=== PATIENT | female | born 1975 | race Caucasian/White ===

== ENCOUNTER 2023-11-06 20:18 | Emergency (ER) | payer OTHER, MEDICAID, SELFPAY ==
[2023-11-06 20:31] VITALS: BP 131/60; PULSE 94; RESP 18; TEMP 37.2; O2SAT 99
--- NOTE | 2023-11-06 21:18 | PC.NURSE ---
patient appears well other than having a swollen right jaw which she stated was from an impacted wisdom tooth. She is in pain but stated she is allergic to pain meds and antibiotics as well as laundry detergent. 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 She was recently seen by a provider who looked at her blood under a microscope where they found poison in her blood and brook particles which she stated are everywhere and in everything.
--- NOTE | 2023-11-06 21:45 | ED.GENADULT ---
HPI - General Adult General Chief complaint: Dental/Oral Stated complaint: possible dental infection Time Seen by Provider: 11/06/23 21:18 Source: patient Mode of arrival: Ambulatory History of Present Illness HPI narrative: Patient is a 48-year-old female who has known issues with her wisdom teeth. She is here for swelling and discomfort to her right lower jaw. Related Data Home Medications Medication Instructions Recorded Confirmed ENZYMES (DIGESTIVE ENZYMES) ##0 05/15/12 calcium carbonate 300 mg (750 mg) 750 mg PO ##0 05/15/12 chewable tablet (Tums E-X) folic acid 1 mg tablet 1 mg PO QDAY ##0 05/15/12 Previous Rx's Medication Instructions Recorded ondansetron 4 mg disintegrating 4 mg PO Q6H PRN nausea and 11/06/23 tablet vomiting #10 tabs penicillin V potassium 500 mg 500 mg PO QID 7 days #28 tabs 11/06/23 tablet Allergies Allergy/AdvReac Type Severity Reaction Status Date / Time From CIPRO Allergy Unknown WEAKNESS, Uncoded 11/20/17 12:19 TENDONS,INFLAMMATION From TYLENOL Allergy Unknown IBS Uncoded 11/20/17 12:19 IBUPROFEN Allergy Unknown IBS Uncoded 11/20/17 12:19 PERCOCET/VICODIN Allergy Unknown IBS Uncoded 11/20/17 12:19 Review of Systems Constitutional Constitutional: Reports system reviewed and no additional complaints, except as documented ENT Ears, Nose, Mouth, and Throat: Reports system reviewed and no additional complaints, except as documented Integumentary/Breasts Skin/Breast: Reports system reviewed and no additional complaints, except as documented Patient History Social History Smoking Status: Never smoker Smoking Status: Never smoker Substance Use Type: does not use Exam Initial Vital Signs Initial Vital Signs: Vital Signs Temperature 99 F 11/06/23 20:31 Pulse Rate 94 H 11/06/23 20:31 Respiratory Rate 18 11/06/23 20:31 Blood Pressure 131/60 11/06/23 20:31 Pulse Oximetry 99 11/06/23 20:31 Oxygen Delivery Method Room Air 11/06/23 20:31 HENMT Face and sinus: other (Swelling along right mandibular region.) Mouth: oral mucosae normal, lip normal and moist mucous membranes Throat: posterior oropharynx normal Skin General: no rashes or lesions noted Course Orders Ordered: Discontinued Medications Ondansetron HCl (Ondansetron 4 Mg Odt Prepack) 1 bottle MISC DIRECTED ONE Stop: 11/06/23 21:46 Last Admin: 11/06/23 21:54 Dose: 1 bottle Documented By: REE Penicillin V Potassium (Penicillin Vk 250 Mg Tablet) 500 mg PO NOW ONE Stop: 11/06/23 21:46 Last Admin: 11/06/23 21:54 Dose: 500 mg Documented By: REE Vital Signs Vital signs: Vital Signs - 8 hr 11/06/23 20:31 11/06/23 21:58 Temperature 99 F Pulse Rate 94 H 94 H Respiratory Rate 18 14 Blood Pressure 131/60 112/53 L Pulse Oximetry 99 96 Oxygen Delivery Method Room Air Room Air Medical Decision Making MDM Narrative Medical decision making narrative: Patient has a obvious dental infection. There are no skin changes over the area. There is no drainable abscess noted intraorally. Will place the patient on penicillin. First dose given here in the ER. There was no indication for admission to the hospital. No indication for IV antibiotics. No respiratory distress. Patient understands she does need to follow up with a dentist for definitive treatment. Discharge Plan Departure Patient Disposition: Home Clinical Impression: Dental abscess Instructions: Tooth Abscess, DI for Dental Pain Activity Restrictions/Additional Instructions: Recommend that you take the antibiotics as directed. You are going to need definitive treatment by a dentist so I recommend that you make contact with your dentist for follow-up. Return to the emergency department for new or worsening symptoms. Prescriptions: New penicillin V potassium 500 mg tablet 500 mg PO QID 7 Days Qty: 28 0RF ondansetron 4 mg tablet,disintegrating 4 mg PO Q6H PRN (Reason: nausea and vomiting) Qty: 10 0RF No Action calcium carbonate [Tums E-X] 750 MG tablet,chewable 750 mg PO Qty: 0 folic acid 1 MG tablet 1 mg PO QDAY Qty: 0 ENZYMES (DIGESTIVE ENZYMES) Qty: 0 Referrals: Nhung Long ND [Primary Care Provider] - Stand Alone Forms: Patient Portal/API
[2023-11-06] MEDS: PENICILLIN VK 250 MG TABLET 500 MG PO (21:54)
[2023-11-06] MEDS: ONDANSETRON 4 MG ODT PREPACK 1 BOTTLE MISC (21:54)
[2023-11-06 21:58] VITALS: BP 112/53; PULSE 94; RESP 14; O2SAT 96
== END 2023-11-06 22:00 | disposition home or self-care (01) ==
PROVIDERS: Emergency Provider Emergency Medicine; PCP Naturopath
DX: K04.7 Periapical abscess without sinus (principal)
CPT/HCPCS: 99283

== ENCOUNTER 2023-11-08 12:46 | Emergency (ER) | payer OTHER, MEDICAID, SELFPAY ==
[2023-11-08 12:57] VITALS: BP 129/67; PULSE 90; RESP 22; TEMP 36.9; O2SAT 98
--- NOTE | 2023-11-08 13:50 | PC.NURSE ---
Provider informed of patient dental pain. Informed patient won't take medications listed for pain in adverse reactions. No new orders at this time.
--- NOTE | 2023-11-08 15:22 | ED.DENTAL ---
HPI - Dental/Oral <Pricila Nolan PA-C - Last Filed: 11/08/23 19:46> General Chief complaint: Dental/Oral Stated complaint: tooth inf Time Seen by Provider: 11/08/23 14:43 Source: patient Mode of arrival: Ambulatory History of Present Illness HPI Narrative: Patient is a 48-year-old female presenting for evaluation of 4 days of swelling in her right cheek. She was treated in the this ER 2 days ago and given a prescription of penicillin. She reports that she has been able to take 6 doses so far but is concerned that she has not noticed significant change in the swelling. She states that she has had an abscess in her right lower wisdom tooth for several years with occasional pus present. She states that she has been concerned about it swelling over the last 4 days. She denies any neck swelling, but does report some increased tenderness in the right side of her neck. 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 She states that she is quite fragile in regard to medications and has allergies to many different medications. She states that she is to be careful about pain in her stomach. She denies any fever since the onset of swelling. She denies any difficulty breathing or swallowing. She does report pain in her right jaw with some radiation into her right denominational. She denies any chest pain or shortness of breath or nasal congestion. Related Data Home Medications Medication Instructions Recorded Confirmed ENZYMES (DIGESTIVE ENZYMES) ##0 05/15/12 calcium carbonate 300 mg (750 mg) 750 mg PO ##0 05/15/12 chewable tablet (Tums E-X) folic acid 1 mg tablet 1 mg PO QDAY ##0 05/15/12 Previous Rx's Medication Instructions Recorded ondansetron 4 mg disintegrating 4 mg PO Q6H PRN nausea and 11/06/23 tablet vomiting #10 tabs penicillin V potassium 500 mg 500 mg PO QID 7 days #28 tabs 11/06/23 tablet Allergies Allergy/AdvReac Type Severity Reaction Status Date / Time From CIPRO Allergy Unknown WEAKNESS, Uncoded 11/20/17 12:19 TENDONS,INFLAMMATION From TYLENOL Allergy Unknown IBS Uncoded 11/20/17 12:19 IBUPROFEN Allergy Unknown IBS Uncoded 11/20/17 12:19 PERCOCET/VICODIN Allergy Unknown IBS Uncoded 11/20/17 12:19 Review of Systems <Pricila Nolan PA-C - Last Filed: 11/08/23 19:46> Review of Systems Narrative: See HPI Patient History <Pricila Nolan PA-C - Last Filed: 11/08/23 19:46> Social History Smoking Status: Never smoker Smoking Status: Never smoker Substance Use Type: does not use Exam <Pricila Nolan PA-C - Last Filed: 11/08/23 19:46> Initial Vital Signs Initial Vital Signs: Vital Signs Temperature 98.5 F 11/08/23 12:57 Pulse Rate 90 11/08/23 12:57 Respiratory Rate 22 11/08/23 12:57 Blood Pressure 129/67 11/08/23 12:57 Pulse Oximetry 98 11/08/23 12:57 Oxygen Delivery Method Room Air 11/08/23 12:57 GENERAL: 48 year old patient appears stated age. Well-developed patient, in no acute distress. HEAD: Atraumatic. Normocephalic. EYES: Pupils equal round and reactive. No scleral icterus. No injection or drainage. ENT: oral mucosa on the lower right by posterior molar does appear swollen, no evidence of abscess present, Throat without erythema, airway patent, uvula midline no evidence of tonsillar hypertrophy or exudate. Tender to palpation of right angle of mandible, no specific submandibular lymphadenopathy noted. NECK: Trachea midline. No swelling of soft tissue or discoloration over neck, tender to palpation of right side of neck, No swollen lymph nodes noted, demonstrates rotation on neck movement during evaluation. CARDIOVASCULAR: Regular rate and rhythm without murmurs, gallops, or rubs. RESPIRATORY: Clear to auscultation. Breath sounds equal bilaterally. No wheezes, rales, or rhonchi. NEURO: AOx3. SKIN: No rash or erythema of visible areas <Elizabeth Carmichael DO - Last Filed: 11/10/23 08:21> Initial Vital Signs Initial Vital Signs: Vital Signs Temperature 98.5 F 11/08/23 12:57 Pulse Rate 90 11/08/23 12:57 Respiratory Rate 22 11/08/23 12:57 Blood Pressure 129/67 11/08/23 12:57 Pulse Oximetry 98 11/08/23 12:57 Oxygen Delivery Method Room Air 11/08/23 12:57 Course <Pricila Nolan PA-C - Last Filed: 11/08/23 19:46> Orders Ordered: Discontinued Medications Acetaminophen (Acetaminophen 325 Mg Tablet) 650 mg PO Q4H PRN PRN Reason: Fever/Mild Pain (1-3) Acetaminophen (Acetaminophen 325 Mg Tablet) 487.5 mg PO Q4H PRN PRN Reason: Fever/Mild Pain (1-3) Last Admin: 11/08/23 16:25 Dose: 487.5 mg Documented By: SPF Vital Signs Vital signs: Vital Signs - 8 hr 11/08/23 12:57 11/08/23 16:40 11/08/23 17:20 Temperature 98.5 F 98.3 F Pulse Rate 90 72 88 Respiratory Rate 22 16 18 Blood Pressure 129/67 123/64 110/56 L Pulse Oximetry 98 98 100 Oxygen Delivery Method Room Air Room Air Room Air <Elizabeth Carmichael DO - Last Filed: 11/10/23 08:21> Orders Ordered: Discontinued Medications Acetaminophen (Acetaminophen 325 Mg Tablet) 650 mg PO Q4H PRN PRN Reason: Fever/Mild Pain (1-3) Acetaminophen (Acetaminophen 325 Mg Tablet) 487.5 mg PO Q4H PRN PRN Reason: Fever/Mild Pain (1-3) Last Admin: 11/08/23 16:25 Dose: 487.5 mg Documented By: SPF Vital Signs Vital signs: Vital Signs - 8 hr 11/08/23 12:57 11/08/23 16:40 11/08/23 17:20 Temperature 98.5 F 98.3 F Pulse Rate 90 72 88 Respiratory Rate 22 16 18 Blood Pressure 129/67 123/64 110/56 L Pulse Oximetry 98 98 100 Oxygen Delivery Method Room Air Room Air Room Air MDM - Dental/Oral <Pricila Nolan PA-C - Last Filed: 11/08/23 19:46> MDM Narrative Medical decision making narrative: Patient presents with symptoms consistent with a dental infection. There is generalized swelling in right mucosa, with no clear active draining noted, culture was attempted from area patient reports she could taste pus, but no drainable abscess noted. Patient does have some swelling and tenderness in right cheek, but it appears generalized likely due to the dental infection. Suspicion is low for deep space neck infection as she has no changes to the color of the skin of her neck and she demonstrated movement of her neck during evaluation. Multiple etiologies for patient's symptoms considered including, but not limited to: Abscess, sialadenitis, dental infection, deep space neck infection Prior Charts reviewed: ER visit 11/07/2023 Patient was given 500 mg of Tylenol and reports her pain significantly decreased. Advised her to continue penicillin treatment, monitor for signs of fever, chills, neck swelling, difficulty breathing or other concerning signs or symptoms and follow up further evaluation in the ER if these should develop. Recommend that patient should follow up with a dentist for removal of right lower wisdom tooth for definitive treatment. Patient's symptoms improved over duration of stay with above-stated therapies. Findings and discharge diagnosis discussed with patient/family followed by verbalization of understanding Return precautions discussed with patient/family whom verbalize understanding of diagnosis and plan Discharge Plan Departure Patient Disposition: Home Clinical Impression: Dental abscess Activity Restrictions/Additional Instructions: *You have been diagnosed with dental abscess. Please continue to take penicillin given. We will notify of culture results of abscess. I recommend that you make follow up appointment with a dentist to fully resolve this issue. Please monitor for signs of neck swelling, fever, increased fatigue or other concerning signs or symptoms and follow up for further evaluation in the emergency department if he should develop these. Thank you for coming in today for your care. *What to do: *Please continue to take your regular medications as directed. [ ] New medication prescriptions sent to your pharmacy: [ ] [ ] New medication written as a paper prescription [ x] No new medications given *Please follow up with your primary care provider in 2-3 days, call for an appointment. Let them know you were seen in the Emergency Department and that we ask that you be seen in follow up. We will electronically transmit a record of today's note if your PCP is in our system *If you do not have a primary care provider please contact the [facility] Resource line at [phone]. They will ask some questions about your medical history and help get you set up with a doctor in the community. *Return to Emergency Department if you should have any new, worsening or concerning symptoms, such as fever greater than 101 F, shaking chills, worsening pain, persistent vomiting or other bothersome symptoms. Prescriptions: No Action calcium carbonate [Tums E-X] 750 MG tablet,chewable 750 mg PO Qty: 0 folic acid 1 MG tablet 1 mg PO QDAY Qty: 0 ENZYMES (DIGESTIVE ENZYMES) Qty: 0 penicillin V potassium 500 mg tablet 500 mg PO QID 7 Days Qty: 28 0RF ondansetron 4 mg tablet,disintegrating 4 mg PO Q6H PRN (Reason: nausea and vomiting) Qty: 10 0RF Referrals: Nhung Long ND [Primary Care Provider] - Stand Alone Forms: Patient Portal/API ED Sign-out <Elizabeth Carmichael DO - Last Filed: 11/10/23 08:21> Cosign ED Attending Cosalexature Attestation: I was available for consultation.
--- NOTE | 2023-11-08 16:04 | PC.NURSE ---
Patient sitting in recliner eating popcorn. Pt refused 650mg tylenol due to being sensitive to a high dose. Pharmacy consulted on placing order for lower dose, provider Ovidio notified. I asked patient if she would like something easier to chew like pudding or applesauce, pt states I'll stick with what I have.
--- NOTE | 2023-11-08 16:20 | PC.NURSE ---
Pt expressed concern for taking tylenol because she states I am very fragile and If I take the tylenol, since it fights fevers, won't it stop my body from naturally fighting the infection? I'm concerned it will make things worse. Provider Ovidio consulted. I assured patient that provider does not believe the tylenol will stop her body from fighting the infection. Pt reports willingness to take 500mg dose of tylenol.
[2023-11-08] MEDS: ACETAMINOPHEN 325 MG TABLET 487.5 MG PO (16:25)
[2023-11-08 16:40] VITALS: BP 123/64; PULSE 72; RESP 16; TEMP 36.8; O2SAT 98
--- NOTE | 2023-11-08 17:00 | PC.NURSE ---
Pt states I need to leave soon, my heart rate is rising, I need to go. Provider notified.
[2023-11-08 17:20] VITALS: BP 110/56; PULSE 88; RESP 18; O2SAT 100
== END 2023-11-08 17:22 | disposition home or self-care (01) ==
PROVIDERS: Emergency Provider Physician Assistant; PCP Naturopath
DX: K04.7 Periapical abscess without sinus (principal)
CPT/HCPCS: 87070; 87075; 87205; 99282; 99283

== ENCOUNTER 2023-11-15 16:47 | Emergency (ER) | payer OTHER, MEDICAID, SELFPAY ==
[2023-11-15 16:51] VITALS: BP 124/88; PULSE 84; RESP 20; TEMP 37; O2SAT 98
--- NOTE | 2023-11-15 17:03 | PC.NURSE ---
LINUX DEVELOPER consult placed per protocol. Pt reports difficulty with finances, unable to work, not enough money. also reports awaiting phone call from someone who is supposed to help me, reports living in car [place], states if I have enough money. LINUX DEVELOPER not present today; order placed, current pt phone # in chart, facesheet printed and placed in LINUX DEVELOPER box. pt reports that phone turns on after 7am. pt denies SI/HI/AVH.
--- NOTE | 2023-11-15 18:12 | PC.NURSE ---
Patient has been here for tooth pain on the same tooth. She was supposed to have her tooth extracted but was not able to make it to her appointment. She stated that she would like to continue on with her PCN but has run out of her course. She cannot have take apap because it makes her heart race and she cant sleep. She does have swelling on her right cheek that is similar in appearance as when I saw her her last visit.
--- NOTE | 2023-11-15 19:17 | ED_ITS ---
HPI - Dental/Oral General Chief complaint: Dental/Oral Stated complaint: abcess tooth Time Seen by Provider: 11/15/23 17:58 Source: patient Mode of arrival: Ambulatory History of Present Illness HPI Narrative: 48-year-old female presents for right mandibular pain and swelling. Patient has known dental infection, she was supposed to see a dentist today for removal but could not due to family issues. Her jaw is painful and she was requesting penicillin for infection. 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 and activate her mast cell Related Data Home Medications Medication Instructions Recorded Confirmed ENZYMES (DIGESTIVE ENZYMES) ##0 05/15/12 calcium carbonate 300 mg (750 mg) 750 mg PO ##0 05/15/12 chewable tablet (Tums E-X) folic acid 1 mg tablet 1 mg PO QDAY ##0 05/15/12 Previous Rx's Medication Instructions Recorded ondansetron 4 mg disintegrating 4 mg PO Q6H PRN nausea and 11/06/23 tablet vomiting #10 tabs penicillin V potassium 500 mg 500 mg PO QID #40 tabs 11/15/23 tablet Allergies Allergy/AdvReac Type Severity Reaction Status Date / Time acetaminophen [From Tylenol] Allergy Unknown Verified 11/15/23 17:17 ciprofloxacin [From Cipro] Allergy Unknown Verified 11/15/23 17:17 hydrocodone [From Vicodin] Allergy Unknown Verified 11/15/23 17:17 ibuprofen Allergy Unknown Verified 11/15/23 17:17 oxycodone [From Percocet] Allergy Unknown Verified 11/15/23 17:17 Review of Systems Review of Systems Narrative: See HPI Patient History Social History Smoking Status: Never smoker Smoking Status: Never smoker Substance Use Type: does not use Exam Initial Vital Signs Initial Vital Signs: Vital Signs Temperature 98.6 F 11/15/23 16:51 Pulse Rate 84 11/15/23 16:51 Respiratory Rate 20 11/15/23 16:51 Blood Pressure 124/88 11/15/23 16:51 Pulse Oximetry 98 11/15/23 16:51 Oxygen Delivery Method Room Air 11/15/23 16:51 Const: Awake, alert, no acute distress, nontoxic appearing HEENT: Trace right mandibular swelling, no trismus, no pooling of secretions Cardiac: regular rate, regular rhythm RESP: unlabored, clear bilaterally, no wheezing GI: Soft, nontender, nondistended, no rebound, no guarding MSK: Atraumatic, full range of motion, pulses equal Skin: Warm, Dry, intact, no rashes Neuro: AO x3, CN II-XII grossly intact, moves all extremities Course Orders Ordered: ED Orders 11/15/23 16:57 Consult to INFECTION PREVENTION COORDINATOR - [employer] Weapons Crewmember Stat Vital Signs Vital signs: Vital Signs - 8 hr 11/15/23 16:51 Temperature 98.6 F Pulse Rate 84 Respiratory Rate 20 Blood Pressure 124/88 Pulse Oximetry 98 Oxygen Delivery Method Room Air MDM - Dental/Oral MDM Narrative Medical decision making narrative: Patient presenting for antibiotics for dental infection. She has rescheduled her dental appointment for 2 weeks from now and she was requesting antibiotics until her appointment. She was insisting that penicillin is the only thing that works for her and she will not consider taking any other antibiotics. Penicillin sent to pharmacy of choice Discharge Plan Departure Patient Disposition: Home Clinical Impression: Dental abscess Instructions: Tooth Abscess Activity Restrictions/Additional Instructions: PLEASE MAKE SURE YOU FOLLOW UP WITH YOUR DENTAL SURGEON Prescriptions: New penicillin V potassium 500 mg tablet 500 mg PO QID Qty: 40 0RF No Action calcium carbonate [Tums E-X] 750 MG tablet,chewable 750 mg PO Qty: 0 folic acid 1 MG tablet 1 mg PO QDAY Qty: 0 ENZYMES (DIGESTIVE ENZYMES) Qty: 0 ondansetron 4 mg tablet,disintegrating 4 mg PO Q6H PRN (Reason: nausea and vomiting) Qty: 10 0RF Referrals: Nhung Long ND [Primary Care Provider] - Stand Alone Forms: Patient Portal/API
--- NOTE | 2023-11-19 12:42 | CM.SWNOTE ---
ED SUPERVISOR UNLOADING follow up Note SUPERVISOR UNLOADING calls patient for follow up consult regarding resources for housing, food and basic needs. Patient states that she is having a medical crisis and has an appt with tomorrow to f/u with dental surgery and trying to get Medicaid to cover the cost of the surgery. Patient endorses she has attempted to connect with [facility], patient states she has connected with [email or web address], has current food stamps, [employer] has assisted with food cards and gas cards. Patient states she is currently mobile in he car and reaching out to friends, attempting to find places where she can stay in her car and connect to electricity. Patient states she is planning to stay between [facility] and [place]. SUPERVISOR UNLOADING gathers patient's email address and emails resources to patient. QUINTIN Kathleen
== END 2023-11-15 19:30 | disposition home or self-care (01) ==
PROVIDERS: Emergency Provider Emergency Medicine; PCP Naturopath
DX: K04.7 Periapical abscess without sinus (principal)
CPT/HCPCS: 99281